=== PATIENT | female | born 1935 | race Caucasian/White ===

== ENCOUNTER 2022-03-16 07:37 | Emergency (ER) | payer MEDICARE, OTHER, SELFPAY ==
[2022-03-16 07:38] VITALS: BP 186/85; PULSE 72; RESP 16; TEMP 36.2; O2SAT 97; BMI 28.5
--- NOTE | 2022-03-16 07:48 | EKG12_ITS ---
Test Reason : HTN Blood Pressure : / mmHG Vent. Rate : 070 BPM Atrial Rate : 147 BPM P-R Int : 000 ms QRS Dur : 170 ms QT Int : 472 ms P-R-T Axes : 000 086 -89 degrees QTc Int : 509 ms Ventricular-paced rhythm Abnormal ECG Confirmed by MORRIS HAMPTON, DWIGHT ([id number]), mapping editor JUAN CORRAL ([id number]) on 03/18/2022 10:03:33 AM Referred By: Confirmed By:DWIGHT CACERES MD
--- NOTE | 2022-03-16 07:48 | CT_ITS ---
STUDY: CT BRAIN WITHOUT CONTRAST REASON FOR EXAM: Female, 86 years old. Hypertension. Dizziness. RADIATION DOSAGE (If Supplied By Facility): CTDIvol = ( 44.99 ) mGy, DLP = ( 796.11 ) mGycm TECHNIQUE: Transaxial CT imaging of the brain was performed without administration of intravenous contrast material. Individualized dose optimization techniques were used for this CT. COMPARISON: No relevant priors. FINDINGS: Normal soft tissue structures. There is hyperostosis frontalis internus. There is mild cerebral atrophy with widening of the extra-axial spaces and ventricular dilatation. There are areas of decreased attenuation within the white matter tracts of the supratentorial brain, consistent with microvascular disease changes. 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 Normal brainstem. Normal cerebellum. There is no intracranial hemorrhage. There are no findings of an acute ischemic infarction. Atherosclerotic calcification of the cavernous portions of the internal carotid arteries and the right vertebral artery. Normal visualized paranasal sinuses. CT/Brain/Head without Contrast IMPRESSION: Chronic involutional changes of the brain. 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 Electronically Signed: Gibran Gregory MD at 9:15 EST ,
[2022-03-16 08:51] VITALS: O2SAT 96
[2022-03-16 09:02] LABS: Absolute Lymphocyte Count 0.83 X10^3/uL (0.83-4.51); Basophil# 0.06 X10^3/uL; Basophil% 0.7 % (0-1); Eosinophil# 0.04 X10^3/uL; Eosinophils% 0.5 % (0-5); Hematocrit 44.1 % (37-47); Hemoglobin 13.9 g/dL (12.0-15.0); Lymphocyte # 0.83 X10^3/ul (0.83-4.51); Lymphocyte % 9.9 % (19-41); Mean Corp Hgb Conc 31.5 g/dL (32-36); Mean Corpuscular Hgb 28.5 pg (27.0-32.0); Mean Corpuscular Volume 90.4 fL (81-99); Mean Platelet Vol. 12.9 fl (6.2-12.0); Monocyte# 0.38 X10^3/uL; Monocyte% 4.5 % (0-10); NRBC Flagged by Analyzer 0 % (0-5); Neutrophil # 7.04 X10^3/uL (2.7-7.7); Neutrophil % 84.2 % (47-70); Platelet Count 147 K/mm3 (150-450); RBC Distribution Width CV 13.5 % (11.6-14.6); RBC Distribution Width SD 44.6 fl (35.1-43.9); Red Blood Count 4.88 M/mm3 (4.2-5.4); White Blood Count 8.4 K/mm3 (4.4-11.0)
--- NOTE | 2022-03-16 09:05 | RAD_ITS ---
STUDY: X-RAY CHEST REASON FOR EXAM: Female, 86 years old. Chest pain. Dizziness. TECHNIQUE: Single AP portable view of the chest. COMPARISON: None. FINDINGS: EKG electrodes are seen. Elevation of the right hemidiaphragm. Mild degree of increased markings at the lung bases slightly more prominent on the right side suggestive of a bibasilar atelectasis. Blunting of both cosmetic angles. There is borderline cardiomegaly. A loop recorder device is seen in the left lower hemithorax. Norrmal mediastinum and tucker. Normal visualized pulmonary arteries. There is atherosclerotic calcification of the aortic arch with tortuosity. There are diffuse degenerative changes of the visualized thoracic spine. There is degenerative osteoarthritis of the bilateral shoulders. Prior left rotator cuff surgery. There is no demonstrated abnormality of the visualized soft tissue structures of the upper abdomen. RAD/Chest 1 View (Portable) IMPRESSION: Mild degree of increased markings at the lung bases suggestive of bibasilar atelectasis with blunting of both costophrenic angles. Electronically Signed: Gibran Gregory MD at 9:28 EST ,
--- NOTE | 2022-03-16 09:10 | EDS_ITS ---
HPI History of Present Illness Chief Complaint: Hypertension Informant: patient and spouse/S.O. Onset/Context/Timing Onset: Today Context: Sudden Onset Timing: Intermittent Quality: Lightheaded, spinning Location: Head Worsened by: Laying on right side Relieved by: Laying on left side Narrative Narrative: Patient presents with dizziness that began today. Patient states she got up to go to the bathroom in the middle of the night. Patient states she was able to walk to the bathroom without difficulty. Patient states that when she came back to bed she laid on her right side and everything started becoming dizzy. Patient describes it as lightheaded and spinning sensation. Patient states that when she rolled onto her left side it improved. Patient states her checked her blood pressure at that time and it was approximately 200/100. Patient was able to go back to sleep and then woke up a few hours later. Patient had similar symptoms when she got up to use the restroom again. Patient states that her dizziness is worse when she lays on her right side. Patient states it goes away when she lays on her left side. Patient's blood pressure was still elevated at that time. Patient is concerned that this could be due to hypertensive urgency. Patient states she has had similar symptoms in the past with her prior stroke. [facility] Medical History Afib Diabetes Hypertension Lymphedema of breast Pacemaker Stroke Home Medications apixaban 5 mg tablet (Eliquis) 5 mg PO BID 03/16/22 [History Last Taken Unknown] furosemide 20 mg tablet 20 mg PO DAILY 03/16/22 [History Last Taken Unknown] hydralazine 25 mg tablet 25 mg PO BID 03/16/22 [History Last Taken Unknown] levothyroxine 25 mcg tablet 25 mcg PO SUTUWETHSA 03/16/22 [History Last Taken Unknown] levothyroxine 25 mcg tablet 37.5 mcg PO MOFR 03/16/22 [History Last Taken Unknown] losartan 50 mg tablet 50 mg PO DAILY 03/16/22 [History Last Taken Unknown] metformin 500 mg tablet 500 mg PO DAILY 03/16/22 [History Last Taken Unknown] metoprolol succinate 50 mg tablet,extended release 24 hr 50 mg PO BID 03/16/22 [History Last Taken Unknown] rosuvastatin 5 mg tablet 5 mg PO QODAY 03/16/22 [History Last Taken Unknown] Allergy/AdvReac Type Severity Reaction Status Date / Time levofloxacin [From Levaquin] Allergy Swelling Verified 03/16/22 07:41 Surgical History History of cholecystectomy History of hysterectomy Hx of tonsillectomy S/P removal of parathyroid gland Social History Smoking Status: Never smoker ROS ROS ED Constitutional Constitutional ED: Reports sweats; Denies chills or fever(s) Eyes Eyes: Denies blurry vision or change in vision ENT ENT ED: Denies rhinorrhea or sore throat Cardiovascular Cardiovascular: Denies chest pain or palpitations Respiratory/Chest Respiratory/Chest: Denies cough or dyspnea Gastrointestinal Gastrointestinal: Denies nausea or vomiting Genitourinary Genitourinary ED: Denies dysuria or hematuria Musculoskeletal Musculoskeletal: Reports back pain; Denies neck pain Integumentary Denies abscess or rash Neurologic Neurologic: Denies headache(s) or weakness Allergic/Immunologic Allergic/Immunologic ED: Denies mouth swelling or urticaria EXAM Physical Exam Const Vital Signs: 03/16/22 07:38 03/16/22 08:51 03/16/22 08:52 Temperature 97.2 F L Temperature Source Oral Pulse Rate 72 Respiratory Rate 16 Respiratory Effort Normal Non-Labored Respiratory Pattern Normal Blood Pressure 186/85 H Blood Pressure Mean 118 Pulse Ox 97 96 Oxygen Delivery Method Room Air Room Air 03/16/22 10:39 Temperature Temperature Source Pulse Rate 84 Respiratory Rate 16 Respiratory Effort Respiratory Pattern Blood Pressure 164/79 H Blood Pressure Mean 107 Pulse Ox 97 Oxygen Delivery Method Room Air Positive well nourished and well developed General Appearance ED: well developed HEENT Reports moist mucous membranes Eyes PERRL and EOMs intact bilaterally Eyes Narrative: There is no nystagmus noted. Neck supple and no JVD Resp normal respiratory effort and clear to auscultation bilaterally Cardio regular rate, regular rhythm and no murmurs GI normal to inspection, nondistended, normoactive bowel sounds and non-tender Palpation: soft Extremity normal to inspection General Extremety ED: Negative for edema or tenderness General Extremity: Negative for edema Neuro oriented x3, CN's II-XII intact bilaterally and no sensory deficits noted Sensorium / Orientation: alert Motor Exam: strength 5/5 throughout Psych mental status grossly normal Skin no rashes or lesions noted MDM MDM MDM Narrative Medical decision making narrative: Differential diagnosis includes stroke, hypertensive urgency, hypertensive emergency, vertigo, dehydration, cardiac dysrhythmia, cardiac ischemia, infection, and intracranial bleeding. CT scan of the brain will be obtained to assess for stroke and intracranial bleeding. CBC will be obtained to assess for anemia and leukocytosis. Basic metabolic profile will be obtained to assess for electrolyte abnormality and renal function. Troponin will be obtained to assess for cardiac ischemia. EKG will be obtained to assess for cardiac dysrhythmia and cardiac ischemia. Chest x-ray will be obtained to assess for pneumonia and congestive heart failure. Lab Data Attestation: I reviewed the patient's lab results. Lab results narrative: CBC was reviewed and was within normal limits. Basic metabolic profile was reviewed and showed a BUN of 24 and creatinine of 1.04. Glucose was slightly elevated at 153. The remainder is within normal limits. Labs: Laboratory Results - last 24 hr 03/16/22 03/16/22 08:16 08:16 WBC 8.4 RBC 4.88 Hgb 13.9 Hct 44.1 MCV 90.4 MCH 28.5 MCHC 31.5 L RDW Std Deviation 44.6 H RDW Coeff of Gerardo 13.5 Plt Count 147 L MPV 12.9 H Immature Gran % (Auto) 0.200 Neut % (Auto) 84.2 H Lymph % (Auto) 9.9 L [place] % (Auto) 4.5 Eos % (Auto) 0.5 Baso % (Auto) 0.7 Absolute Neuts (auto) 7.0 Absolute Lymphs (auto) 0.83 Nucleated RBC % 0 Sodium 142 Potassium 4.1 Chloride 106 Carbon Dioxide 28.0 Anion Gap 8 BUN 24 H Creatinine 1.04 H Estim Creat Clear Calc 39.89 Est GFR (MDRD) Af Amer 65 Est GFR (MDRD) Non-Af 54 L BUN/Creatinine Ratio 23.1 H Glucose 153 H Calcium 9.7 Troponin I High Sens 8 Radiography Chest X-Ray - ED: 1 View, Read by ED Physician, Read by Radiologist and No Acute Disease Diagnostic Testing: Clinical Impression(s) from Imaging Studies Brain CT 03/16/22 07:48 IMPRESSION: Chronic involutional changes of the brain. 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 Electronically Signed: Gibran Gregory MD at 9:15 EST , Chest X-Ray 03/16/22 09:05 IMPRESSION: Mild degree of increased markings at the lung bases suggestive of bibasilar atelectasis with blunting of both costophrenic angles. Electronically Signed: Gibran Gregory MD at 9:28 EST , CT scan of the brain was reviewed independently by myself. There is no evidence of stroke or hemorrhage. Radiologist also interpreted the CT scan and noted chronic involutional changes. There is an old lacunar infarct in the insular cortex of the right temporal lobe. Portable 1 view chest x-ray was obtained. On my independent interpretation, lung manning showed bibasilar atelectasis. There is normal cardiac silhouette. Bony thorax is normal. There is no acute process noted. Radiologist also interpreted the x-ray and agrees. EKG Initial EKG: Attestation: I personally reviewed and interpreted this EKG as follows: Interpretation: No Acute Injury Pattern, Paced (70) and LBBB Comments: EKG was obtained. On my interpretation, it shows a paced rhythm with a rate of 70. There is a left bundle branch block pattern noted. QRS interval was prolonged at 170 ms. QTc interval was slightly prolonged at 509 ms. [place] was normal. There were nonspecific ST-T wave changes consistent with a left bundle branch block pattern. Prior EKG tracings: not available for review Prior: No Prior Treatment and Re-Evaluation Narrative: Patient is feeling better on reevaluation. Patient was able to ambulate to the bathroom without difficulty. Patient has no further dizziness. Patient's blood pressures have been stable at 164/79. Patient was advised of her findings. Patient wants to go home. Patient was instructed to continue to monitor her blood pressure. Patient was instructed to follow-up with her primary care physician in 5 to 7 days. Patient understood and was agreeable with the plan. All questions were answered. Discharge Plan Triage Chief Complaint: Hypertension ED Provider: Benjamin Aleman Dx/Rx/DC Orders Clinical Impression: Vertigo, Hypertension Instructions: ED Hypertension, Established, ED Vertigo, Unspecified Prescriptions: No Action losartan 50 mg tablet 50 mg PO DAILY Label Comments: TAKE 1 TABLET BY MOUTH ONCE DAILY metformin 500 mg tablet 500 mg PO DAILY Label Comments: TAKE 1 TABLET BY MOUTH ONCE DAILY metoprolol succinate 50 mg tablet extended release 24 hr 50 mg PO BID Label Comments: TAKE 1 TABLET BY MOUTH TWICE DAILY hydralazine 25 mg tablet 25 mg PO BID Label Comments: TAKE 1 TABLET BY MOUTH TWICE DAILY levothyroxine 25 mcg tablet 25 mcg PO SUTUWETHSA Label Comments: TAKE 1 TABLET BY MOUTH ON MONDAY, MONDAY, MONDAY, MONDAY AND MONDAY. TAKE 1 & 1/2 TABLETS ON MONDAY AND MONDAY. levothyroxine 25 mcg tablet 37.5 mcg PO MOFR Label Comments: TAKE 1 TABLET BY MOUTH ON MONDAY, MONDAY, MONDAY, MONDAY AND MONDAY. TAKE 1 & 1/2 TABLETS ON MONDAY AND MONDAY. furosemide 20 mg tablet 20 mg PO DAILY Label Comments: TAKE 1 TABLET BY MOUTH ONCE DAILY NEEDED rosuvastatin 5 mg tablet 5 mg PO QODAY Label Comments: TAKE 1 TABLET BY MOUTH EVERY OTHER DAY Eliquis 5 mg Tablet 5 mg PO BID Primary Care Provider: Blanca Simons Referrals: Blanca Simons [Other] - 5-7 Days Disposition Disposition: Home, Self Care
[2022-03-16] MEDS: Aspirin 81 MG TAB.CHEW 324 MG PO (09:15)
[2022-03-16 09:17] LABS: Anion Gap 8 (5-15); BUN 24 mg/dL (7-18); BUN/Creat Ratio 23.1 RATIO (10-20); Calcium,Total 9.7 mg/dL (8.5-10.1); Chloride 106 mmol/L (98-107); Creatinine, Serum 1.04 mg/dL (0.55-1.02); EST Glomerular Filtration Rate 54 mL/min (>60); Est Glom Filt Rate - Afr Amer 65 mL/min (>60); Estimated Creatinine Clearance 39.89 ml/min; Glucose 153 mg/dL (74-106); Potassium 4.1 mmol/L (3.5-5.1); Sodium Level 142 mmol/L (136-145); Troponin-I HS (w/2H Reflex) 8 pg/mL (3.0-54.0)
[2022-03-16 10:39] VITALS: BP 164/79; PULSE 84; RESP 16; O2SAT 97
[2022-03-16 10:52] LABS: Reflex Troponin-HS? (from REC) Y
[2022-03-16 11:17] VITALS: BP 163/82; PULSE 75; RESP 16; O2SAT 97
== END 2022-03-16 11:18 | disposition home or self-care (01) ==
PROVIDERS: Emergency Provider Emergency Medicine; Visit Provider Emergency Medicine
DX: R42 Dizziness and giddiness (principal); E11.9 Type 2 diabetes mellitus without complications; I10 Essential (primary) hypertension; Z79.01 Long term (current) use of anticoagulants; Z79.899 Other long term (current) drug therapy; Z79.84 Long term (current) use of oral hypoglycemic drugs; Z95.0 Presence of cardiac pacemaker; Z86.73 Personal history of transient ischemic attack (TIA), and cerebral infarction without residual deficits
CPT/HCPCS: 70450; 71045; 80048; 84484; 85025; 93005; 99285; A4216